=== PATIENT | female | born 1960 | race Caucasian/White ===

== ENCOUNTER → 2016-06-30 | Outpatient (CLI) | payer BC ==
[2016-06-30 16:44] LABS: MEAN CORPUSCULAR HGB CONC 34.1 g/dL (31.0-37.0); MEAN PLATELET VOLUME 9.7 FL (6.0-9.5); WHITE BLOOD COUNT 4.72 10^3uL (4.0-11.0)
[2016-06-30 16:45] LABS: MEAN CORPUSCULAR HEMOGLOBIN 32.5 PG (26.0-34.0)
[2016-06-30 16:53] LABS: ALBUMIN 4.4 g/dL (3.4-5.0); ANION GAP 14.5 MEQ/L (3-15); CALCULATED IONIZED CALCIUM 4.1 mg/dL (3.8-4.6); TOTAL PROTEIN 7.3 g/dL (6.4-8.5)
== END ==
LOC: LAB 16:31
PROVIDERS: ATTEND Internal Medicine Rheumatology
DX: L45 Papulosquamous disorders in diseases classified elsewhere (principal)
CPT/HCPCS: 36415; 80053; 85027